=== PATIENT | male | born 1970 | race Caucasian/White ===

== ENCOUNTER 2020-06-08 09:50 | Emergency (ER) | payer OTHER ==
[~2020-06-08 09:50] MED LIST: CLEOCIN300 MG PO; DICLOFENAC SODI75 MG PO; NAPROXEN500 MG PO
[2020-06-08 11:06] LABS: BASOPHIL 0.6 % (0-2); EOSINOPHIL 10.4 % (0-5); HCT 38.3 % (42.0-52.0); HGB 13.9 g/dl (13.2-18.0); LYMPHOCYTE 21.1 % (15-48); MCH 30.8 pg (25.0-31.0); MCHC 36.3 g/dL (32.0-36.0); MCV 84.7 fL (78.0-100.0); MONOCYTE 7.2 % (0-12); MPV 10.2 fL (6.0-9.5); NEUTROPHIL 59.7 % (41-80); NRBC 0; PLT 212 K/uL (150-400); RBC 4.52 M/uL (4.70-6.00); RDW 11.3 % (11.5-14.0); WBC 10.2 K/uL (4.0-10.5)
[2020-06-08 11:20] LABS: LACTIC ACID 1.8 mmol/L (0.4-1.9)
[2020-06-08 11:45] LABS: ALBUMIN 3.1 g/dL (3.4-5.0); BILIRUBIN - TOTAL 0.6 mg/dL (0.2-1.0); BUN/CREAT RATIO (CALC) 29.6 RATIO; CREATININE 0.54 mg/dL (0.67-1.17); GLOBULIN (CALCULATION) 3.7 g/dL; POTASSIUM 3.4 mmol/L (3.5-5.1); TOTAL PROTEIN 6.8 g/dL (6.4-8.2)
[2020-06-08 11:52] LABS: BILIRUBIN NEGATIVE (NEGATIVE); BLOOD NEGATIVE Ery/uL (NEGATIVE); CLARITY CLEAR (CLEAR); COLOR YELLOW (YELLOW); GLUCOSE (U) 3+ mg/dL (NORMAL); LEUKOCYTES NEGATIVE Leu/uL (NEGATIVE); NITRITE NEGATIVE (NEGATIVE); PROTEIN NEGATIVE (NEGATIVE); SPECIFIC GRAVITY 1.025 (1.001-1.030); UROBILINOGEN 0.2 mg/dL (0.2-1.0)
[2020-06-08] MEDS ORDERED: METFORMIN HCL500 MG PO (12:03)
[2020-06-08] MEDS ORDERED: ONDANSETRON ODT4 MG PO (12:03)
== END 2020-06-08 12:24 | disposition home or self-care (01) ==
LOC: FER 09:50
PROVIDERS: Emergency Medicine
DX: E11.65 Type 2 diabetes mellitus with hyperglycemia (principal); R19.7 Diarrhea, unspecified
CPT/HCPCS: 36415; 74022; 80053; 81003; 82009; 83605; 83690; 85025; J2405; J7030

== ENCOUNTER 2020-11-24 10:11 | Emergency (ER) | payer OTHER ==
[~2020-11-24 10:11] MED LIST changes: +METFORMIN HCL500 MG PO; +ONDANSETRON ODT4 MG PO
[2020-11-24 11:15] LABS: BASOPHIL 0.6 % (0-2); HGB 12.2 g/dl (13.2-18.0); LYMPHOCYTE 18.1 % (15-48); MCH 29.2 pg (25.0-31.0); MCHC 33.9 g/dL (32.0-36.0); MCV 86.1 fL (78.0-100.0); MONOCYTE 9.2 % (0-12); MPV 9.1 fL (6.0-9.5); NEUTROPHIL 67.8 % (41-80); NRBC 0; PLT 513 K/uL (150-400); RBC 4.18 M/uL (4.70-6.00); RDW 11.3 % (11.5-14.0); WBC 12.5 K/uL (4.0-10.5)
[2020-11-24 11:45] LABS: BUN/CREAT RATIO (CALC) 25.8 RATIO; C-REACTIVE PROTEIN 14.3 mg/dL (<=0.90); CREATININE 0.62 mg/dL (0.67-1.17); POTASSIUM 4.1 mmol/L (3.5-5.1)
== END 2020-11-24 17:50 | disposition other institution (70) ==
LOC: FER 10:11
PROVIDERS: Emergency Medicine
DX: E11.52 Type 2 diabetes mellitus with diabetic peripheral angiopathy with gangrene (principal); E11.649 Type 2 diabetes mellitus with hypoglycemia without coma; E11.65 Type 2 diabetes mellitus with hyperglycemia; I96 Gangrene, not elsewhere classified; Z20.822 Contact with and (suspected) exposure to COVID-19
CPT/HCPCS: 36415; 73630; 80048; 83605; 85025; 86140; 87040; 87070; 87077; 87186; 87205; J0133; J3370; J7030; J7050; U0002

== ENCOUNTER 2021-04-14 08:38 | Emergency (ER) | payer OTHER ==
[2021-04-14 09:10] LABS: BILIRUBIN NEGATIVE (NEGATIVE); BLOOD NEGATIVE Ery/uL (NEGATIVE); CLARITY CLEAR (CLEAR); COLOR YELLOW (YELLOW); GLUCOSE (U) 2+ mg/dL (NORMAL); LEUKOCYTES NEGATIVE Leu/uL (NEGATIVE); NITRITE NEGATIVE (NEGATIVE); PROTEIN TRACE (LOW) mg/dL (NEGATIVE); SPECIFIC GRAVITY 1.025 (1.001-1.030); UROBILINOGEN 0.2 mg/dL (0.2-1.0); pH 5.5 (5.0-9.0)
[2021-04-14 09:31] LABS: URINARY WBC RARE
[2021-04-14 09:32] LABS: SQUAMOUS EPITHELIAL CELLS RARE
[2021-04-14] MEDS ORDERED: MEDROL 4MG DOSEP4 MG PO (09:41)
[2021-04-14] MEDS ORDERED: CYCLOBENZAPRINE10 MG PO (09:41)
== END 2021-04-14 12:11 | disposition home or self-care (01) ==
LOC: FER 08:38
PROVIDERS: Emergency Medicine
DX: M54.16 Radiculopathy, lumbar region (principal); E11.9 Type 2 diabetes mellitus without complications; Z79.4 Long term (current) use of insulin; Z79.84 Long term (current) use of oral hypoglycemic drugs
CPT/HCPCS: 72110; 81001